=== PATIENT | male | born 1990 | race Caucasian/White ===

== ENCOUNTER 2016-12-31 00:58 | Emergency (ER) | payer BC ==
[~2016-12-31] VITALS: Ht 185.4 cm; Wt 83.9 kg
[2016-12-31 01:02] VITALS: BP 136/89
== END 2016-12-31 01:32 | disposition home or self-care (01) ==
LOC: ER 00:59
DX: G51.0 Bell's palsy (principal)
CPT/HCPCS: 99283; A4606; Z7610

== ENCOUNTER 2025-04-04 22:51 | Emergency (ER) | payer BC ==
[~2025-04-04] VITALS: Ht 182.9 cm; Wt 99.8 kg
[2025-04-05 00:45] VITALS: BP 131/70; TEMP 98.4
[2025-04-05] MEDS ORDERED: LIDOCAINE 1% INJ 50 ML MDV IJ ONE (01:21)
[2025-04-05 01:30] VITALS: O2SAT 99
== END 2025-04-05 02:00 | disposition home or self-care (01) ==
LOC: ER 23:08
DX: S91.312A Laceration without foreign body, left foot, initial encounter (principal); Z60.2 Problems related to living alone; W26.8XXA Contact with other sharp object(s), not elsewhere classified, initial encounter; Y93.89 Activity, other specified; Y92.89 Other specified places as the place of occurrence of the external cause; Y99.8 Other external cause status
CPT/HCPCS: 12001; 73630; 99283; J3490